=== PATIENT | female | born 1950 | race Caucasian/White ===

== ENCOUNTER → 2017-05-29 | Outpatient (CLI) | payer BC | LOC: MC.RAD 08:20 | DX: Z12.31 Encounter for screening mammogram for malignant neoplasm of breast (principal) ==

== ENCOUNTER → 2018-07-21 | Outpatient (CLI) | payer BC | LOC: MC.RAD 13:15 | DX: Z12.31 Encounter for screening mammogram for malignant neoplasm of breast (principal) ==

== ENCOUNTER → 2019-08-31 | Outpatient (CLI) | payer BC | LOC: MC.RAD 08-27 14:15 | DX: Z12.31 Encounter for screening mammogram for malignant neoplasm of breast (principal) ==

== ENCOUNTER 2020-05-14 05:23 | Emergency (ER) | payer BC ==
[~2020-05-14] VITALS: Ht 147.3 cm; Wt 52.3 kg
[2020-05-14 05:28] VITALS: TEMP 97.8
[2020-05-14 05:45] LABS: BASO # 0.1 (0.0-0.2); BASO % 0.9 % (0.0-2.0); EOS # 0.4 (0.0-0.7); GRAN # 2.9 (1.4-6.5); GRAN % 49.8 % (42.2-75.2); HEMATOCRIT 45.6 % (37.0-47.0); HEMOGLOBIN 15.1 g/dl (12.5-16.0); LYMPH # 1.9 (1.2-3.4); LYMPH % 33.3 % (20.0-51.0); MEAN CELL VOLUME 92 fl (80.0-100.0); MEAN CORPUSCULAR HEMOGLOBIN 30 pg (27.0-31.0); MEAN CORPUSCULAR HGB CONC 33 g/dl (33.0-37.0); MEAN PLATELET VOLUME 8.8 fl (7.4-10.4); MONO # 0.6 (0.1-0.6); MONO % 9.8 % (1.7-9.3); PLATELET COUNT 207 K/mm3 (130-400); RED BLOOD COUNT 4.97 M/mm3 (4.10-5.30); REDCELL DISTRIBUTION WIDTH-CV 12.2 % (11.5-14.5)
[2020-05-14 05:51] LABS: INR 0.9 (0.8-3.0); PROTHROMBIN TIME 10.2 SECONDS (9.7-12.8)
[2020-05-14 05:54] LABS: PARTIAL THROMBOPLASTIN TIME 31.3 SECONDS (26.0-37.0)
[2020-05-14 05:58] LABS: ALBUMIN 4.2 gm/dL (3.5-5.0); BILIRUBIN,TOTAL 0.6 mg/dL (0.0-1.0); CALCIUM 9.1 mg/dL (8.4-10.2); CREATININE, serum 0.78 (0.52-1.25); TOTAL PROTEIN 7.4 gm/dL (6.4-8.2)
[2020-05-14 06:26] LABS: TROPONIN-I 0.68 ng/mL (0.000-0.035)
[2020-05-14 08:28] VITALS: BP 135/80; PULSE 71
[2020-05-14] MEDS ORDERED: ZYRTEC 10MG10 MG PO (08:29)
[2020-05-14] MEDS ORDERED: VITAMIND3 5000 PO (08:29)
[2020-05-14] MEDS ORDERED: OMEGA-3 1000 MG1 CAP PO (08:30)
[2020-05-14] MEDS ORDERED: ASPIRIN 81M81 MG/TA2 PO (08:31)
== END 2020-05-14 08:28 | disposition short-term general hospital (02) ==
LOC: COL.ER 05:23
PROVIDERS: Emergency Medicine
DX: I21.4 Non-ST elevation (NSTEMI) myocardial infarction (principal)
CPT/HCPCS: J1644; J7030

== ENCOUNTER → 2024-02-13 | Outpatient (CLI) | payer BC ==
[~2024-02-13] MED LIST: ASPIRIN 81M81 MG/TA2 PO; OMEGA-3 1000 MG1 CAP PO; VITAMIND3 5000 PO; ZYRTEC 10MG10 MG PO
== END ==
LOC: MC.RAD 06:53
DX: Z12.31 Encounter for screening mammogram for malignant neoplasm of breast (principal)